=== PATIENT | female | born 1990 | race Caucasian/White ===

== ENCOUNTER 2021-11-16 21:58 | Emergency (ER) | payer OTHER ==
[~2021-11-16 21:58] MED LIST: KEFLEX500 MG PO
[2021-11-16 22:37] LABS: HEMOGLOBIN 13.4 gm/dl (12.3-15.3); RED BLOOD COUNT 4.45 M/UL (4.00-5.10); WHITE BLOOD COUNT 6.8 K/UL (4.5-11.0)
[2021-11-16 22:55] LABS: BUN/CREATININE RATIO 11 (0-10)
== END 2021-11-16 23:15 | disposition left against medical advice (07) ==
LOC: ER1 21:58
PROVIDERS: Family Medicine
DX: R56.9 Unspecified convulsions (principal); Z88.0 Allergy status to penicillin
CPT/HCPCS: 80053; 80307; 81001; 84703; 85025; 93005; 99281